=== PATIENT | female | born 1985 | race Two or more races ===

== ENCOUNTER 2018-08-14 12:48 | Outpatient (CLI) | payer OTHER ==
[~2018-08-14 12:48] MED LIST: SYNTHROID50 MCG PO
== END 2018-08-14 12:56 | disposition home or self-care (01) ==
LOC: SONOGRAMA 12:48
DX: Z34.81 Encounter for supervision of other normal pregnancy, first trimester (principal)

== ENCOUNTER 2018-10-07 03:14 | Outpatient (CLI) | payer OTHER | END 2018-10-07 08:00 | disposition home or self-care (01) | LOC: OBS/DEL 03:14 | DX: O47.02 False labor before 37 completed weeks of gestation, second trimester (principal); Z34.02 Encounter for supervision of normal first pregnancy, second trimester ==

== ENCOUNTER 2019-02-08 13:52 | Inpatient (IN) | payer OTHER ==
[~2019-02-08] VITALS: Ht 162.6 cm; Wt 224.0 kg
== END 2019-02-11 18:57 | disposition home or self-care (01) | DRG 833 ==
LOC: LDR 02-10 13:20
PROVIDERS: ADMIT Obstetrics & Gynecology
PROC: 4A1HXCZ Monitoring of Products of Conception, Cardiac Rate, External Approach (ICD-10-PCS; principal; 2019-02-10)
DX: O14.00 Mild to moderate pre-eclampsia, unspecified trimester (principal); Z34.03 Encounter for supervision of normal first pregnancy, third trimester

== ENCOUNTER → 2019-02-13 | Outpatient (CLI) | payer OTHER ==
[~2019-02-13] MED LIST changes: +PRENATAL FORMU1 EAC1 PO; +ZANTAC150 M3
== END | disposition home or self-care (01) ==
LOC: NST 17:31
DX: Z34.83 Encounter for supervision of other normal pregnancy, third trimester (principal)

== ENCOUNTER 2019-02-14 05:49 | Inpatient (IN) | payer OTHER ==
[~2019-02-14] VITALS: Ht 162.6 cm; Wt 102.5 kg
[~2019-02-14 05:49] MED LIST changes: -PRENATAL FORMU1 EAC1 PO; -ZANTAC150 M3
[2019-02-14] MEDS ORDERED: PRENATAL FORMU1 EAC1 PO (07:13)
[2019-02-14] MEDS ORDERED: ZANTAC150 M3 (07:14)
== END 2019-02-16 11:33 | disposition home or self-care (01) | DRG 807 ==
LOC: LDR 05:49 → SURG-SUITE 05:49
PROVIDERS: ADMIT Obstetrics & Gynecology
PROC: 10E0XZZ Delivery of Products of Conception, External Approach (ICD-10-PCS; principal; 2019-02-14)
PROC: 10907ZC Drainage of Amniotic Fluid, Therapeutic from Products of Conception, Via Natural or Artificial Opening (ICD-10-PCS; 2019-02-14)
PROC: 0W8NXZZ Division of Female Perineum, External Approach (ICD-10-PCS; 2019-02-14)
PROC: 3E033VJ Introduction of Other Hormone into Peripheral Vein, Percutaneous Approach (ICD-10-PCS; 2019-02-14)
PROC: 4A1HXCZ Monitoring of Products of Conception, Cardiac Rate, External Approach (ICD-10-PCS; 2019-02-14)
DX: O80 Encounter for full-term uncomplicated delivery (principal); Z37.0 Single live birth; Z3A.38 38 weeks gestation of pregnancy

== ENCOUNTER 2023-01-04 16:13 | Emergency (ER) | payer OTHER ==
[~2023-01-04] VITALS: Ht 165.1 cm; Wt 97.5 kg
[~2023-01-04 16:13] MED LIST changes: +PRENATAL FORMU1 EAC1 PO; +ZANTAC150 M3
[2023-01-04] MEDS ORDERED: AZITHROMYCIN250 MG PO (19:42)
== END 2023-01-04 20:35 | disposition home or self-care (01) ==
LOC: ER 16:13
DX: J06.9 Acute upper respiratory infection, unspecified (principal); J45.909 Unspecified asthma, uncomplicated; Z91.018 Allergy to other foods; E03.9 Hypothyroidism, unspecified; N80.9 Endometriosis, unspecified

== ENCOUNTER 2024-01-31 16:40 | Outpatient (CLI) | payer OTHER ==
[~2024-01-31 16:40] MED LIST changes: +AZITHROMYCIN250 MG PO; +DUI500 PO; +ENDOMETRIN100 MG; +PEPCID AC20 MG PO; +PRENA1 CHEW TA1.4 MG; +PROMETRIUM200 MG; +ZOFRAN8 MG SL
== END 2024-01-31 23:00 | disposition home or self-care (01) ==
LOC: LAB 16:40
PROVIDERS: ATTEND Specialist
DX: L02.91 Cutaneous abscess, unspecified (principal)

== ENCOUNTER 2024-03-05 04:34 | Outpatient (CLI) | payer OTHER ==
[2024-03-05] MEDS ORDERED: FOLIC ACID20 MG (04:37)
[2024-03-05] MEDS ORDERED: RINGERS SOLUTION,LACTATED 1,000 ML IV SCH (05:00)
[2024-03-05 06:58] LABS: HEMATOCRIT 34.3 % (36.0-45.00); HEMOGLOBIN 11.1 g/dL (12.0-15.00); MEAN CELL VOLUME 82.1 fL (80.00-100.00); MEAN CORPUSCULAR HEMOGLOBIN 26.6 pg (27.00-32.0); MEAN CORPUSCULAR HGB CONC 32.4 g/dl (32.0-36.0); PLATELET COUNT 284 K/uL (150-450); RED BLOOD COUNT 4.17 M/uL (4.00-6.00); RED CELL DISTRIBUTION WIDTH 18.2 % (11.5-14.5)
== END 2024-03-05 10:28 | disposition home or self-care (01) ==
LOC: OBS/DEL 04:34
PROVIDERS: ATTEND Obstetrics & Gynecology
DX: O47.03 False labor before 37 completed weeks of gestation, third trimester (principal); Z3A.36 36 weeks gestation of pregnancy

== ENCOUNTER 2024-03-13 12:12 | Outpatient (CLI) | payer OTHER ==
[~2024-03-13 12:12] MED LIST changes: +FOLIC ACID20 MG
== END 2024-03-13 13:00 | disposition home or self-care (01) ==
LOC: NST 12:12
PROVIDERS: ATTEND Obstetrics & Gynecology Maternal & Fetal Medicine
DX: Z34.83 Encounter for supervision of other normal pregnancy, third trimester (principal)